=== PATIENT | male | born 1950 | race Caucasian/White ===

== ENCOUNTER 2018-11-27 08:51 | Emergency (ER) | payer OTHER ==
[2018-11-27] MEDS ORDERED: SODIUM CHLORIDE 0.9% 1000ML 1,000 ML IVS PRN (09:13)
[2018-11-27] MEDS ORDERED: SODIUM CHLORIDE 0.9% (FLUSH) 10 ML SYG IV PRN (09:13)
[2018-11-27] MEDS ORDERED: MORPHINE SULFATE INJ 10 MG/ML VIAL IV ONE ×2 (09:15→12:47)
[2018-11-27] MEDS ORDERED: ONDANSETRON INJ 4 MG/2 ML VIAL IV ONE (09:15)
--- NOTE | 2018-11-27 09:18 | ED.PDOC ---
History of Present Illness - General Chief Complaint: Trauma Stated Complaint: Pt fell walking on a wet surface Time Seen by Provider: 11/27/18 09:09 - History of Present Illness Initial Comments: Pt is a 68 yo M with no significant PMH who presents via EMS after a fall at work. States he slipped on wet surface and fell on left hip and wrist. Denies hitting head, LOC, neck or back pain. Has pain to left hip and left wrist. Has been unable to walk since the fall. Given Fentanyl by EMS and pain is 3/10 to left hip at this time. Allergies/Adverse Reactions: Allergies Penicillins Adverse Reaction (Verified 11/27/18 09:46) Home Medications: Ambulatory Orders NK 11/27/18 Review of Systems - Review of Systems Constitutional: Denies: chills, fever, weakness EENTM: Denies: eye pain, blurred vision, double vision, nose pain, mouth pain Respiratory: Denies: cough, short of breath, wheezing Cardiology: Denies: chest pain, palpitations, syncope Gastrointestinal/Abdominal: Denies: abdominal pain, diarrhea, nausea, vomiting Musculoskeletal: States: joint pain - left hip and wrist. Denies: back pain, neck pain Skin: Denies: dryness, rash Neurological: Denies: anxiety, headache, weakness Family Medical History - Family History Mother Family History: No Known Living Status: Unknown Physical Exam - Physical Exam General Appearance: Alert, Comfortable, Other - Lying on gurney, no distress Eye Exam: bilateral normal - PERRL Ears, Nose, Throat: normal pharynx, other - atraumatic Neck: non-tender, full range of motion, supple, other - No vertebral tenderness to nec or back Respiratory: chest non-tender, lungs clear, normal breath sounds, no respiratory distress Cardiovascular/Chest: normal peripheral pulses, regular rate, rhythm, no edema, no JVD, no murmur Gastrointestinal/Abdominal: non tender, soft Back Exam: normal inspection, no CVA tenderness, no vertebral tenderness Extremity: other - TTP to left distal radius with mild edema and no deformity. TTP left lateral hip. LLE shortened and externally rtated. LLE NVI. Pelvis stable Neurologic: no motor/sensory deficits, alert, normal mood/affect, oriented x 3 Skin Exam: normal color, warm/dry Progress - Progress Progress: 11/27/18 09:23 Dejon Hay #[id number] 11/27/18 10:29 D/W pt left hip fracture and will need surgery. Prefers to stay here if possible, but if no ortho here prefers [place]. Pain is controlled, resting comfortably. Will D/W Dr. Samuels 11/27/18 11:20 D/W Dr. Samuels. No OR capability until Thursday. Will consult if hospitalist will admit. 11/27/18 11:49 D/W hospitalist. Since there is no OR capability until Thursday or Thursday, needs to be transferred for surgical intervention. Pt requests [facility] 11/27/18 12:24 D/W Dr. Perry at [facility] and accepts transfer. Transfer delay due to radiology downtime and needing imaging results for dispo and awaiting to see if OR capabilities at this facility. 11/27/18 12:29 Pt had GLF at work. Has left intertrochanteric hip fracture. xray of left distal radius inconclusive and splint applied. Labs reasuring. Pain has been controlled in ED and transferred due to need for ortho not available at this time here. - Results/Orders Results/Orders: EKG NSR, rate 82, nml intervals, nonspecific ST abnormality 11/27/18 09:13 URINE DRUG SCREEN, 7 ASSAY Stat Sodium Chloride 0.9% (Flush) [Saline Flush Syringe] 10 ml IV PRN PRN Sodium Chloride 0.9% 1000ML [Ns 1000 ml] 1,000 ml IVS .QD 11/27/18 09:15 EKG .ONCE 11/27/18 12:06 Splint PRN 11/28/18 09:00 Pulse Ox Daily Laboratory Results - last 24 hr 11/27/18 11/27/18 11/27/18 08:44 08:44 08:44 WBC 8.0 RBC 5.01 Hgb 14.8 Hct 45.1 MCV 90.0 MCH 29.6 MCHC 32.9 L RDW 13.5 Plt Count 367 MPV 8.1 Absolute Neuts (auto) 6.20 Absolute Lymphs (auto) 1.20 Absolute Monos (auto) 0.50 Absolute Eos (auto) 0.10 Absolute Basos (auto) 0.10 Neutrophils % 77.4 Lymphocytes % 14.9 L Monocytes % 6.2 Eosinophils % 0.7 L Basophils % 0.8 PT 10.1 INR 1.01 PTT (SP) 26.3 Sodium 137 Potassium 4.0 Chloride 98 L Carbon Dioxide 24 Anion Gap 19.0 H BUN 12 Creatinine 0.84 BUN/Creatinine Ratio 14.3 Random Glucose 123 H Serum Osmolality 274.9 L Calcium 8.8 Total Bilirubin 0.6 AST 19 ALT 12 Alkaline Phosphatase 82 Serum Total Protein 7.9 Albumin 3.7 Globulin 4.2 H Albumin/Globulin Ratio 0.9 L Ethyl Alcohol EXAM DESCRIPTION: Wrist,Left 3 Views CLINICAL HISTORY: 68 years, Male, trauma COMPARISON: None Technique: Frontal lateral and oblique views of the left wrist was obtained. FINDINGS/IMPRESSION: Images of the left wrist demonstrate mild linear lucency and cortical irregularity noted about the radius metaphysis concerning for nondisplaced fracture (for correlation with point tenderness within this region). The osseous alignment is otherwise intact. The bone mineralization is preserved. Electronically signed by: Rafal Benites DO 11/27/2018 10:12 AM CDT : 1950. Technique: Single AP view of the left hip. Clinical history: trauma. Findings: Intertrochanteric fracture of the left hip. 11 mm of displacement. No destructive lesion. No dislocation. Mild soft tissue swelling. Vascular calcification noted.. Impression: 1. Mildly displaced intertrochanteric fracture of the left hip. Electronically signed by: Donovan Conte MD 11/27/2018 10:11 AM CDT Departure - Departure Clinical Impression: Intertrochanteric fracture of left hip Qualifiers: Encounter type: initial encounter Fracture type: closed Fracture alignment: displaced Qualified Code(s): S72.142A - Displaced intertrochanteric fracture of left femur, initial encounter for closed fracture Left wrist sprain Qualifiers: Encounter type: initial encounter Qualified Code(s): S63.502A - Unspecified sprain of left wrist, initial encounter Time of Disposition: 12:28 Disposition: Transfer to Hospital Condition: Fair Departure Forms: ED Discharge - Pt. Copy, Patient Portal Self Enrollment Instructions: DI for Trauma Home Medications: Ambulatory Orders NK 11/27/18 Transfer to Outside Facility - Transfer Information Decision to Transfer Date: 11/27/18 Decision to Transfer Time: 12:28 Reason for Transfer: Orthopedics Accepting Provider:: Dr. Perry Accepting Facility: [facility]
--- NOTE | 2018-11-27 12:12 | RAD ---
EXAM DESCRIPTION: Wrist,Left 3 Views CLINICAL HISTORY: 68 years, Male, trauma COMPARISON: None Technique: Frontal lateral and oblique views of the left wrist was obtained. FINDINGS/IMPRESSION: Images of the left wrist demonstrate mild linear lucency and cortical irregularity noted about the radius metaphysis concerning for nondisplaced fracture (for correlation with point tenderness within this region). The osseous alignment is otherwise intact. The bone mineralization is preserved. Electronically signed by: Rafal Benites DO 11/27/2018 10:12 AM CDT
--- NOTE | 2018-11-27 12:12 | RAD ---
EXAM DESCRIPTION: Chest,1 View CLINICAL HISTORY: 68 years Male, trauma COMPARISON: None. TECHNIQUE: AP portable chest. FINDINGS/IMPRESSION: Moderate background pulmonary emphysema with peripheral lung reticular thickening likely relating to underlying pulmonary scarring/fibrosis. Increased density within the left lung base likely represent atelectasis or small infiltrate. No pleural effusion or pneumothorax. The heart is normal in size. The aortic knob is partially calcified. No acute osseous abnormality. Punctate scattered opacities overlies the right humeral head. Electronically signed by: Rafal Benites DO 11/27/2018 10:09 AM CDT
--- NOTE | 2018-11-27 12:12 | RAD ---
: 1950. Technique: Single AP view of the left hip. Clinical history: trauma. Findings: Intertrochanteric fracture of the left hip. 11 mm of displacement. No destructive lesion. No dislocation. Mild soft tissue swelling. Vascular calcification noted.. Impression: 1. Mildly displaced intertrochanteric fracture of the left hip. Electronically signed by: Donovan Conte MD 11/27/2018 10:11 AM CDT
[2018-11-27 13:48] VITALS: O2SAT 91
[2018-11-27 13:49] VITALS: BP 169/84; TEMP 97.4
== END 2018-11-27 13:00 | disposition short-term general hospital (02) ==
LOC: ER 08:51
DX: S72.142A Displaced intertrochanteric fracture of left femur, initial encounter for closed fracture (principal); S63.502A Unspecified sprain of left wrist, initial encounter; Z88.0 Allergy status to penicillin; W01.0XXA Fall on same level from slipping, tripping and stumbling without subsequent striking against object, initial encounter; Y93.01 Activity, walking, marching and hiking; Y92.9 Unspecified place or not applicable
CPT/HCPCS: 36415; 71045; 73110; 73502; 80053; 80320; 85025; 85610; 85730; 93005; J2270; J2405; J7030

== ENCOUNTER → 2019-02-10 | Outpatient (CLI) | payer MEDICARE, OTHER | LOC: LAB.O 10:18 | PROVIDERS: ATTEND Family Medicine | DX: I10 Essential (primary) hypertension (principal); N40.0 Benign prostatic hyperplasia without lower urinary tract symptoms; R53.83 Other fatigue; E78.5 Hyperlipidemia, unspecified ==

== ENCOUNTER 2019-03-18 06:00 | Day surgery (SDC) | payer MEDICARE, OTHER ==
[2019-03-18] MEDS ORDERED: LIDOCAINE 1% 10 ML VIAL INJ ONE (07:00)
[2019-03-18] MEDS ORDERED: EPINEPHrine HCL AMP 1 MG/ML AMP ONE (07:00)
[2019-03-18] MEDS ORDERED: GLYCOPYRROLATE 0.2 MG/ML VIAL ONE (07:00)
[2019-03-18] MEDS ORDERED: MIDAZOLAM INJ 2 MG/2 ML VIAL ONE (07:00)
[2019-03-18] MEDS ORDERED: PROPOFOL 200 MG/20 ML VIAL IV ONE (07:00)
[2019-03-18] MEDS ORDERED: LACTATED RINGERS 1,000 ML ONE (07:04)
[2019-03-18] MEDS ORDERED: LEVALBUTEROL NEBS 1.25 MG/3 ML VIAL NEB ONE ×2 (07:41→07:50)
[2019-03-18] MEDS ORDERED: LACTATED RINGERS 1,000 ML BAG IV ONE (08:07)
[2019-03-18] MEDS ORDERED: LACTATED RINGERS 1,000 ML IVS ONE (08:07)
[2019-03-18] MEDS ORDERED: KETAMINE HCL 100 MG/ML VIAL ONE (09:10)
--- NOTE | 2019-03-18 10:06 | OP ---
DATE OF PROCEDURE: 03/18/19 PREOPERATIVE DIAGNOSIS: 1. Screening colonoscopy. POSTOPERATIVE DIAGNOSIS: 1. Diverticulosis. PROCEDURE: 1. Colonoscopy. SURGEON: Nick Patiño MD PROCEDURE IN DETAIL: General anesthesia was induced in the lateral position. Digital rectal exam was normal. He is a very thin man. The colonoscope was then passed all the way to the cecum as identified by the appendiceal orifice and ileocecal valve. Upon withdrawal, we had a good examination, good prep. No significant polyps were identified. He did have significant diverticulosis with very large pouches throughout the sigmoid and descending colon with no evidence of complication. The mucosal surfaces were otherwise normal. The patient tolerated the procedure and was taken to Recovery to be discharged. #[id number] cc: Prasanna Jamison MD MTD
[2019-03-18 11:01] VITALS: BP 176/77; TEMP 96.6; O2SAT 96
== END 2019-03-18 10:50 | disposition home or self-care (01) ==
LOC: AMB 06:00
PROVIDERS: ATTEND Surgery
DX: Z12.11 Encounter for screening for malignant neoplasm of colon (principal); K57.30 Diverticulosis of large intestine without perforation or abscess without bleeding; F17.200 Nicotine dependence, unspecified, uncomplicated; Z88.0 Allergy status to penicillin; Z79.899 Other long term (current) drug therapy
CPT/HCPCS: 00812; 94640; G0121; J2250; J3490; J7120; J7614